=== PATIENT | male | born 1995 | race Caucasian/White ===

== ENCOUNTER 2022-01-05 14:45 | Outpatient (CLI) | payer BC, OTHER ==
--- NOTE | 2022-01-06 09:40 | XRAY Report ---
PROCEDURE: Ankle 3 View RT INDICATIONS: R ANKLE PX TECHNIQUE: 3 views of the ankle were acquired. COMPARISON: None. FINDINGS: Bones: No fractures or dislocations. Ankle mortise is normally aligned. No suspicious bony lesions . Soft tissues: Small tibiotalar joint effusion. Achilles tendon appears normal. Soft tissue swelling over the medial and lateral malleoli. IMPRESSION: 1. No acute osseous abnormality. 2. Soft tissue swelling. 3. Small tibiotalar joint effusion. 4. If clinical symptoms persist and there is clinical suspicion for internal derangement, MRI is sugg trud. Reviewed by: Nuvia Culver MD on 01/06/2022 9:39 AM PST Approved by: Nuvia Culver MD on 01/06/2022 9:39 AM PST Station ID: [id number]
== END 2022-01-05 23:59 | disposition home or self-care (01) ==
LOC: DI.N 14:45
PROVIDERS: ATTEND Family Medicine
DX: M25.571 Pain in right ankle and joints of right foot (principal); M25.471 Effusion, right ankle